=== PATIENT | male | born 1995 | race Caucasian/White ===

== ENCOUNTER 2020-06-02 15:30 | Emergency (ER) | payer SELFPAY ==
[~2020-06-02] VITALS: Ht 177.8 cm; Wt 74.8 kg
== END 2020-06-02 17:01 | disposition home or self-care (01) ==
LOC: ED 15:30
DX: S93.602A Unspecified sprain of left foot, initial encounter (principal); W19.XXXA Unspecified fall, initial encounter; Y93.89 Activity, other specified; Y92.89 Other specified places as the place of occurrence of the external cause; Y99.8 Other external cause status